=== PATIENT | female | born 1965 | race American Indian/Alaskan Native ===

== ENCOUNTER 2019-01-20 22:44 | Inpatient (IN) | payer OTHER ==
[2019-01-20] MEDS ORDERED: Lidocaine 2% MPF (5 ml) Inj ONE (23:05)
[2019-01-20] MEDS ORDERED: Midazolam 2 MG/2 ML VIAL ONE (23:06)
[2019-01-20] MEDS ORDERED: Labetalol 5mg/ml (4ml) ONE (23:31)
[2019-01-21 00:03] VITALS: BMI 26.3
[2019-01-21] MEDS ORDERED: Sodium Chloride 0.9% 1,000 ML IV SCH (00:45)
[2019-01-21 01:00] LABS: BASO % 0.3 % (0.0-2.0); EOS % 0.1 % (0.0-4.0); HEMOGLOBIN 14.5 g/dL (11.0-16.0); LYMPH # 0.7 K/uL (1.0-4.3); LYMPH % 5.9 % (20.0-40.0); MEAN CORPUSCULAR HEMOGLOBIN 28.4 pg (27.0-31.0); MEAN CORPUSCULAR HGB CONC 32.7 g/dL (33.0-37.0); MEAN PLATELET VOLUME 8.7 fL (7.2-11.7); MONO # 0.4 K/uL (0.0-0.8); MONO % 3.3 % (0.0-10.0); NEUT # 10.1 K/uL (1.8-7.0); NEUT % 90.4 % (50.0-75.0); NRBC % 0.1 % (0.0-2.0); RBC 5.12 Mil/uL (3.80-5.20); WHITE BLOOD COUNT 11.2 K/uL (4.8-10.8)
--- NOTE | 2019-01-21 01:07 | CP.PCM.CON ---
History of Present Illness - History of Present Illness History of Present Illness: 53 F with h/o htn, family h/o cad, presented to the [facility] ER with c/o chest pain, sob, numbness in the fingers, EKG showed inferior STEMI, patient transferred here as code heart, stented in RCA, currently pain free, vitals maintained. B mirela observed post cath. Had also about 60-70% LAD disease for possible staged treatment. PMH as above Allergies angioedema that she with swelling left side of the face while on lisinopril Family history father had CAD in mid 50's at age of 62 Social lives with family, denies smoking, alcohol, illicit drugs, currently retired. Meds reviewed. Review of Systems - Review of Systems All systems: reviewed and no additional remarkable complaints except (HPI) Past Patient History - Past Medical History & Family History Past Medical History?: Yes - Past Social History Smoking Status: Never Smoked Alcohol: None Drugs: Denies Home Situation {Lives}: With Family - CARDIAC Hx Cardiac Disorders: Yes Hx Hypertension: Yes - PULMONARY Hx Respiratory Disorders: No - NEUROLOGICAL Hx Neurological Disorder: No - HEENT Hx HEENT Problems: No - RENAL Hx Chronic Kidney Disease: No - ENDOCRINE/METABOLIC Hx Endocrine Disorders: No - HEMATOLOGICAL/ONCOLOGICAL Hx Blood Disorders: Yes - INTEGUMENTARY Hx Dermatological Problems: No - MUSCULOSKELETAL/RHEUMATOLOGICAL Hx Musculoskeletal Disorders: No - GASTROINTESTINAL Hx Gastrointestinal Disorders: No - GENITOURINARY/GYNECOLOGICAL Hx Genitourinary Disorders: No - PSYCHIATRIC Hx Psychophysiologic Disorder: No Hx Substance Use: No - SURGICAL HISTORY Hx Surgeries: Yes Hx Section: Yes Hx Tubal Ligation: Yes - ANESTHESIA Hx Anesthesia: No Hx Anesthesia Reactions: No Hx Malignant Hyperthermia: No Has any member of the family had a problem w/ anesthesia?: No Meds Allergies/Adverse Reactions: Allergies Allergy/AdvReac Type Severity Reaction Status Date / Time lisinopril Allergy ANGIOEDEMA Verified 01/20/19 22:10 - Medications Medications: Current Medications Aspirin (Ecotrin) 81 mg PO DAILY [place] Famotidine (Pepcid) 20 mg PO DAILY PRN PRN Reason: Heartburn Heparin Sodium (Porcine) (Heparin) 5,000 units SC Q12 [place] Sodium Chloride (Sodium Chloride 0.9%) 1,000 mls @ 70 mls/hr IV .[id number] [place] Metoprolol Tartrate (Lopressor) 25 mg PO Q12H [place] Rosuvastatin Calcium (Crestor) 20 mg PO HS [place] Ticagrelor (Brilinta) 90 mg PO BID [place] Physical Exam - Additional Findings Additional findings: * HEENT CARIDAD * Neck supple * Chest clear * CVS regular, no gallop or rub * PA soft,nt bs present, cath site no swelling or oozing noticed * Ext no edema b/l DP and PT pulses present * 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 Assessment & Plan - Assessment and Plan (Free Text) Assessment: * Inferior STEMI s/p pci, 60-70% LAD * H/o HTN * Family history of early CAD * Angioedema while on lisinopril Plan: * Monitor in ICU * Dual antipletelet agent * Betablocker * Echo * labs * ivf * gi/dvt prophylaixs * See orders for detail.
[2019-01-21 01:21] LABS: INR 1.2; PROTHROMBIN TIME 13.6 SECONDS (9.7-12.2)
--- NOTE | 2019-01-21 01:22 | CP.PCM.CON ---
History of Present Illness - History of Present Illness History of Present Illness: 53 F with h/o htn, family h/o cad, presented to the [facility] ER with c/o chest pain, sob, numbness in the fingers, EKG showed inferior STEMI, patient transferred here as code heart, stented in RCA, currently pain free, vitals maintained. B mirela observed post cath. Had also about 60-70% LAD disease for possible staged treatment. PMH as above Allergies angioedema that she with swelling left side of the face while on lisinopril Family history father had CAD in mid 50's at age of 62 Social lives with family, denies smoking, alcohol, illicit drugs, currently retired. Meds reviewed. Review of Systems - Review of Systems All systems: reviewed and no additional remarkable complaints except (HPI) Past Patient History - Past Medical History & Family History Past Medical History?: Yes - Past Social History Smoking Status: Never Smoked Alcohol: None Drugs: Denies Home Situation {Lives}: With Family - CARDIAC Hx Cardiac Disorders: Yes Hx Hypertension: Yes - PULMONARY Hx Respiratory Disorders: No - NEUROLOGICAL Hx Neurological Disorder: No - HEENT Hx HEENT Problems: No - RENAL Hx Chronic Kidney Disease: No - ENDOCRINE/METABOLIC Hx Endocrine Disorders: No - HEMATOLOGICAL/ONCOLOGICAL Hx Blood Disorders: Yes - INTEGUMENTARY Hx Dermatological Problems: No - MUSCULOSKELETAL/RHEUMATOLOGICAL Hx Musculoskeletal Disorders: No - GASTROINTESTINAL Hx Gastrointestinal Disorders: No - GENITOURINARY/GYNECOLOGICAL Hx Genitourinary Disorders: No - PSYCHIATRIC Hx Psychophysiologic Disorder: No Hx Substance Use: No - SURGICAL HISTORY Hx Surgeries: Yes Hx Section: Yes Hx Tubal Ligation: Yes - ANESTHESIA Hx Anesthesia: No Hx Anesthesia Reactions: No Hx Malignant Hyperthermia: No Has any member of the family had a problem w/ anesthesia?: No Meds Allergies/Adverse Reactions: Allergies Allergy/AdvReac Type Severity Reaction Status Date / Time lisinopril Allergy ANGIOEDEMA Verified 01/20/19 22:10 - Medications Medications: Current Medications Aspirin (Ecotrin) 81 mg PO DAILY [place] Famotidine (Pepcid) 20 mg PO DAILY PRN PRN Reason: Heartburn Heparin Sodium (Porcine) (Heparin) 5,000 units SC Q12 [place] Sodium Chloride (Sodium Chloride 0.9%) 1,000 mls @ 70 mls/hr IV .[id number] [place] Metoprolol Tartrate (Lopressor) 25 mg PO Q12H [place] Rosuvastatin Calcium (Crestor) 20 mg PO HS [place] Ticagrelor (Brilinta) 90 mg PO BID [place] Physical Exam - Additional Findings Additional findings: * HEENT CARIDAD * Neck supple * Chest clear * CVS regular, no gallop or rub * PA soft,nt bs present, cath site no swelling or oozing noticed * Ext no edema b/l DP and PT pulses present * 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 Assessment & Plan - Assessment and Plan (Free Text) Assessment: * Inferior STEMI s/p pci, 60-70% LAD * H/o HTN * Family history of early CAD * Angioedema while on lisinopril Plan: * Monitor in ICU * Dual antipletelet agent * Betablocker * Echo * labs * ivf * gi/dvt prophylaixs * See orders for detail. Past Patient History - Past Medical History & Family History Past Medical History?: Yes - Past Social History Smoking Status: Never Smoked Alcohol: None Drugs: Denies Home Situation {Lives}: With Family - CARDIAC Hx Cardiac Disorders: Yes Hx Hypertension: Yes - PULMONARY Hx Respiratory Disorders: No - NEUROLOGICAL Hx Neurological Disorder: No - HEENT Hx HEENT Problems: No - RENAL Hx Chronic Kidney Disease: No - ENDOCRINE/METABOLIC Hx Endocrine Disorders: No - HEMATOLOGICAL/ONCOLOGICAL Hx Blood Disorders: Yes - INTEGUMENTARY Hx Dermatological Problems: No - MUSCULOSKELETAL/RHEUMATOLOGICAL Hx Musculoskeletal Disorders: No - GASTROINTESTINAL Hx Gastrointestinal Disorders: No - GENITOURINARY/GYNECOLOGICAL Hx Genitourinary Disorders: No - PSYCHIATRIC Hx Psychophysiologic Disorder: No Hx Substance Use: No - SURGICAL HISTORY Hx Surgeries: Yes Hx Section: Yes Hx Tubal Ligation: Yes - ANESTHESIA Hx Anesthesia: No Hx Anesthesia Reactions: No Hx Malignant Hyperthermia: No Has any member of the family had a problem w/ anesthesia?: No Meds Allergies/Adverse Reactions: Allergies Allergy/AdvReac Type Severity Reaction Status Date / Time lisinopril Allergy ANGIOEDEMA Verified 01/20/19 22:10 - Medications Medications: Current Medications Aspirin (Ecotrin) 81 mg PO DAILY [place] Famotidine (Pepcid) 20 mg PO DAILY PRN PRN Reason: Heartburn Heparin Sodium (Porcine) (Heparin) 5,000 units SC Q12 [facility] Sodium Chloride (Sodium Chloride 0.9%) 1,000 mls @ 70 mls/hr IV .[id number] [facility] Influenza Virus Vaccine (Flucelvax Quad [id number] Syr) 60 mcg IM .ONCE ONE Stop: 01/23/19 10:01 Metoprolol Tartrate (Lopressor) 25 mg PO Q12H [facility] Rosuvastatin Calcium (Crestor) 20 mg PO HS [place] Ticagrelor (Brilinta) 90 mg PO BID [facility] Results - Vital Signs Recent Vital Signs: Last Vital Signs Temp Pulse 86 01/21/19 00:06 Resp 16 01/21/19 00:06 BP Pulse Ox 97 01/21/19 00:06 - Labs Result Diagrams: 01/21/19 00:57 Labs: Laboratory Results - last 24 hr 01/21/19 00:57 WBC 11.2 H RBC 5.12 Hgb 14.5 Hct 44.5 MCV 87.0 MCH 28.4 MCHC 32.7 L RDW 15.0 H Plt Count 258 MPV 8.7 Neut % (Auto) 90.4 H Lymph % (Auto) 5.9 L [place] % (Auto) 3.3 Eos % (Auto) 0.1 Baso % (Auto) 0.3 Neut # (Auto) 10.1 H Lymph # (Auto) 0.7 L [place] # (Auto) 0.4 Eos # (Auto) 0.0 Baso # (Auto) 0.0
[2019-01-21 01:27] LABS: PARTIAL THROMBOPLASTIN TIME > 400 SECONDS (21-34)
[2019-01-21 01:38] LABS: ALBUMIN 5.4 g/dL (3.5-5.0); CALCIUM 10.1 mg/dl (8.6-10.4)
[2019-01-21 01:49] LABS: CK-MB 6.42 ng/mL (0.0-3.38); TROPONIN I 0.105 ng/mL (0.00-0.120)
--- NOTE | 2019-01-21 02:20 | CP.PCM.HP ---
History of Present Illness - History of Present Illness History of Present Illness: H&P Dr. Merino 54 F w/ PMhx of HTN presents to hospital as code heart transfer from [facility]. Patient states she was playing bingo when she started having this sudden pressure like, 10/10 chest pain with pain radiating to left arm. Patient had associated SOB and 2 episodes of vomiting. Patient was rushed to ED where they found ST elevates in inferior leads II, III, AVF. Code heart was called and patient was transferred to [facility] Cardiac cath revealed 100 % stenosis in mid to proximal RCA requiring 1 stent. LAD had 60-70% occlusion. Post cath patient feels much better. Patient denies headaches, vision changes, chest pain, SOB, cough, abdominal pain, diarrhea, constipation. PMHD: Dr. Gold PMHx: HTN, sickle cell traite Meds: Unsure Allergies: Lisinopril (angioedema) FHx father had CAD in mid 50's at age of 62 PSHx: ovarian tubal ligation SHx: Denies tobacco use, drinks socially, denies illicit drug use Present on Admission - Present on Admission Any Indicators Present on Admission: No History of DVT/PE: No History of Uncontrolled Diabetes: No Urinary Catheter: No Decubitus Ulcer Present: No Review of Systems - Constitutional Constitutional: absent: Chills, Frequent Falls - EENT Eyes: absent: Blurred Vision, Change in Vision Ears: absent: Ear Discharge - Cardiovascular Cardiovascular: absent: Chest Pain, Chest Pain at Rest, Dyspnea - Respiratory Respiratory: absent: Dyspnea, Dyspnea on Exertion, Chest Congestion - Gastrointestinal Gastrointestinal: absent: Abdominal Pain, Diarrhea - Genitourinary Genitourinary: absent: Change in Urinary Stream - Musculoskeletal Musculoskeletal: absent: Abnormal Gait, Arthralgias - Neurological Neurological: absent: Abnormal Gait, Abnormal Hearing, Numbness - Psychiatric Psychiatric: absent: Depression - Hematologic/Lymphatic Hematologic: absent: Easy Bleeding Past Patient History - Past Medical History & Family History Past Medical History?: Yes - Past Social History Smoking Status: Never Smoked Alcohol: None Drugs: Denies Home Situation {Lives}: With Family - CARDIAC Hx Cardiac Disorders: Yes Hx Hypertension: Yes - PULMONARY Hx Respiratory Disorders: No - NEUROLOGICAL Hx Neurological Disorder: No - HEENT Hx HEENT Problems: No - RENAL Hx Chronic Kidney Disease: No - ENDOCRINE/METABOLIC Hx Endocrine Disorders: No - HEMATOLOGICAL/ONCOLOGICAL Hx Blood Disorders: Yes - INTEGUMENTARY Hx Dermatological Problems: No - MUSCULOSKELETAL/RHEUMATOLOGICAL Hx Musculoskeletal Disorders: No - GASTROINTESTINAL Hx Gastrointestinal Disorders: No - GENITOURINARY/GYNECOLOGICAL Hx Genitourinary Disorders: No - PSYCHIATRIC Hx Psychophysiologic Disorder: No Hx Substance Use: No - SURGICAL HISTORY Hx Surgeries: Yes Hx Section: Yes Hx Tubal Ligation: Yes - ANESTHESIA Hx Anesthesia: No Hx Anesthesia Reactions: No Hx Malignant Hyperthermia: No Has any member of the family had a problem w/ anesthesia?: No Meds Allergies/Adverse Reactions: Allergies Allergy/AdvReac Type Severity Reaction Status Date / Time lisinopril Allergy ANGIOEDEMA Verified 01/20/19 22:10 Physical Exam - Constitutional Appears: Non-toxic, No Acute Distress - Head Exam Head Exam: NORMAL INSPECTION - Eye Exam Eye Exam: EOMI, Normal appearance - ENT Exam ENT Exam: Mucous Membranes Moist - Respiratory Exam Respiratory Exam: Clear to Auscultation Bilateral, NORMAL BREATHING PATTERN - Cardiovascular Exam Cardiovascular Exam: +S1, +S2. absent: Systolic Murmur - GI/Abdominal Exam GI & Abdominal Exam: Normal Bowel Sounds, Soft - Extremities Exam Extremities exam: Negative for: calf tenderness, pedal edema Additional comments: site of catheter insertion R groin, dressing, clean, dry, intact. - Back Exam Back exam: absent: CVA tenderness (L), CVA tenderness (R) - Neurological Exam Neurological exam: Alert, Oriented x3 - Psychiatric Exam Psychiatric exam: Normal Affect, Normal Mood - Skin Skin Exam: Dry, Intact, Normal Color, Warm Results - Vital Signs Recent Vital Signs: Last Vital Signs Temp 97 F L 01/21/19 00:00 Pulse 75 01/21/19 02:00 Resp 14 01/21/19 02:00 BP 156/88 H 01/21/19 02:00 Pulse Ox 99 01/21/19 02:00 - Labs Result Diagrams: 01/21/19 00:57 01/21/19 00:57 Labs: Laboratory Results - last 24 hr 01/21/19 01/21/19 01/21/19 00:57 00:57 00:57 WBC 11.2 H RBC 5.12 Hgb 14.5 Hct 44.5 MCV 87.0 MCH 28.4 MCHC 32.7 L RDW 15.0 H Plt Count 258 MPV 8.7 Neut % (Auto) 90.4 H Lymph % (Auto) 5.9 L [place] % (Auto) 3.3 Eos % (Auto) 0.1 Baso % (Auto) 0.3 Neut # (Auto) 10.1 H Lymph # (Auto) 0.7 L [place] # (Auto) 0.4 Eos # (Auto) 0.0 Baso # (Auto) 0.0 PT 13.6 H INR 1.2 APTT > 400 H* Sodium 139 Potassium 4.5 Chloride 100 Carbon Dioxide 28 Anion Gap 15 BUN 16 Creatinine 1.2 Est GFR ( Amer) 57 Est GFR (Non-Af Amer) 47 Random Glucose 120 H Calcium 10.1 Phosphorus 3.5 Magnesium 2.0 Total Bilirubin 1.2 AST 45 H D ALT 9 Alkaline Phosphatase 96 Total Creatine Kinase 181 H CK-MB (Mass) 6.42 H Troponin I 0.1050 Total Protein 10.5 H Albumin 5.4 H Globulin 5.1 H Albumin/Globulin Ratio 1.0 Assessment & Plan - Assessment and Plan (Free Text) Assessment: 53 F w/ PMhx of HTN presents to hospital as code heart, with ST elevations in inferior leads, 100% stenosis of RCA, 60-70% of LAD, requiring 1 stent in RCA, currently in ICU for further monitoring. Plan: STEMI - chest pain, with EKG revealing ST elevations in II, III, AVF - s/p cardiac cath revealing 100 stenosis of RCA requiring 1 stent & 60-70 % of LAD - F/u ECHO, LIPID panel, TSH - Aspirin 81 mg daily, brilinta 90 mg BID, rosuvastatin 20 mg daily, metopolol tartrate 25 mg PO BID, NS @ 70mls/hr - F/u cardio recs PPx - DVT: heparin 5000 SC daily, SCDs - GI: pepcid 20 mg daily PRN
[2019-01-21 06:20] LABS: BASO # 0.1 K/uL (0.0-0.2); BASO % 0.9 % (0.0-2.0); EOS % 0.1 % (0.0-4.0); HEMOGLOBIN 13.1 g/dL (11.0-16.0); LYMPH # 1.1 K/uL (1.0-4.3); LYMPH % 12.9 % (20.0-40.0); MEAN CELL VOLUME 85.8 fL (81.0-99.0); MEAN CORPUSCULAR HEMOGLOBIN 28.2 pg (27.0-31.0); MEAN CORPUSCULAR HGB CONC 32.8 g/dL (33.0-37.0); MEAN PLATELET VOLUME 8.3 fL (7.2-11.7); MONO # 0.4 K/uL (0.0-0.8); MONO % 4.8 % (0.0-10.0); NEUT # 6.8 K/uL (1.8-7.0); NEUT % 81.3 % (50.0-75.0); NRBC % 0.1 % (0.0-2.0); RBC 4.65 Mil/uL (3.80-5.20); RED CELL DISTRIBUTION WIDTH 15.2 % (11.5-14.5); WHITE BLOOD COUNT 8.3 K/uL (4.8-10.8)
[2019-01-21 06:32] LABS: INR 1.2; PROTHROMBIN TIME 12.9 SECONDS (9.7-12.2)
[2019-01-21 06:48] LABS: LDL CHOLESTEROL 113 mg/dL (0-129)
[2019-01-21 06:54] LABS: ALB/GLOB RATIO 1.2 (1.0-2.1); ALBUMIN 4.9 g/dL (3.5-5.0); ALT/SGPT 24 U/L (9-52); AST/SGOT 59 U/L (14-36); BLOOD UREA NITROGEN 14 mg/dL (7-17); CALCIUM 9.9 mg/dl (8.6-10.4); CK-MB 25.2 ng/mL (0.0-3.38); GFR NON-AFRICAN AMERICAN 58; HDL CHOLESTEROL 43 mg/dL (30-70)
--- NOTE | 2019-01-21 09:51 | CP.PCM.PN ---
Subjective - Date & Time of Evaluation Date of Evaluation: 01/21/19 Time of Evaluation: 15:32 - Subjective Subjective: Medicine Note for Dr. Merino Patient was seen and examined at bedside. Patient denied any chest pain, shortness of breath, or bleeding from the cath site. Objective - Vital Signs/Intake and Output Vital Signs (last 24 hours): Temp Pulse Resp BP Pulse Ox 98.1 F 67 13 148/85 98 01/21/19 04:00 01/21/19 07:00 01/21/19 07:00 01/21/19 07:00 01/21/19 07:00 Intake and Output: 01/21/19 01/21/19 06:59 18:59 Intake Total 520 70 Output Total 1900 Balance -1380 70 - Medications Medications: Current Medications Aspirin (Ecotrin) 81 mg PO DAILY [facility] Last Admin: 01/21/19 09:08 Dose: 81 mg Famotidine (Pepcid) 20 mg PO DAILY PRN PRN Reason: Heartburn Heparin Sodium (Porcine) (Heparin) 5,000 units SC Q12 [facility] Last Admin: 01/21/19 09:08 Dose: 5,000 units Influenza Virus Vaccine (Flucelvax Quad [id number] Syr) 60 mcg IM .ONCE ONE Stop: 01/23/19 10:01 Metoprolol Tartrate (Lopressor) 25 mg PO Q12H [facility] Last Admin: 01/21/19 01:35 Dose: 25 mg Rosuvastatin Calcium (Crestor) 20 mg PO HS [place] Ticagrelor (Brilinta) 90 mg PO BID [facility] Last Admin: 01/21/19 09:07 Dose: 90 mg - Labs Labs: 01/21/19 06:10 01/21/19 06:10 PT 12.9 SECONDS (9.7-12.2) H 01/21/19 06:10 INR 1.2 01/21/19 06:10 APTT 29 SECONDS (21-34) D 01/21/19 06:10 - Constitutional Appears: No Acute Distress - Head Exam Head Exam: NORMAL INSPECTION, NORMOCEPHALIC - Eye Exam Eye Exam: EOMI, Normal appearance, PERRL Pupil Exam: NORMAL ACCOMODATION - ENT Exam ENT Exam: Mucous Membranes Moist, Normal Exam - Respiratory Exam Respiratory Exam: Clear to Ausculation Bilateral, NORMAL BREATHING PATTERN. absent: Decreased Breath Sounds, Rhonchi, Wheezes - Cardiovascular Exam Cardiovascular Exam: REGULAR RHYTHM, +S1, +S2 - GI/Abdominal Exam GI & Abdominal Exam: Soft, Normal Bowel Sounds. absent: Distended, Tenderness - Extremities Exam Extremities Exam: Normal Inspection. absent: Pedal Edema, Tenderness - Neurological Exam Neurological Exam: Alert, Awake, Oriented x3 - Psychiatric Exam Psychiatric exam: Normal Affect, Normal Mood - Skin Skin Exam: Dry, Intact, Normal Color, Warm - Additional Findings Additional findings: Catherization site - clean/ dry / intact Assessment and Plan - Assessment and Plan (Free Text) Plan: STEMI - Inferior [place] s/p cardiac cath with RCA PCI placement - 60-70 % of LAD, which will require outpatient PCI placement - ECHO, pending Management: - Aspirin 81 mg daily, Brilinta 90 mg BID, Metopolol tartrate 25 mg PO BID, Rosuvastatin 20 mg daily Hypertension - Patient was started on HCTZ 12.5mg PO daily by her PMD - She has been normotensive s/p cath - Will continue to monitor Prophylactic Measures - GI PPX: Pepcid PO daily - DVT PPX: Hep SC Q12, SCDs DW Dr. Merino, Miladis Soares DO, PGY2
--- NOTE | 2019-01-21 11:32 | CP.CCUPN ---
<Faustino Nichole - Last Filed: 01/21/19 16:59> CCU Subjective - Physician Review Subjective (Free Text): ICU Progress Note for Dr. Roseline Guardado Pt seen and examined at bedside this am. S/p Code Heart, EKG demonstrated ST elevations in inferior leads. Cardiac cath performed by Dr. Guy demonstrated 100% stenosis of RCA, 60-70% of LAD, requiring 1 stent in RCA. Pt states she feels tired this am, but denies having chest pain currently. Denies sob, n/v/d/c, abd pain, urinary complaints, numbness/tingling of exts, fever, chills, or other symptoms. CCU Objective - Vital Signs / Intake & Output Vital Signs (Last 4 hours): Vital Signs Temp Pulse Resp BP Pulse Ox 01/21/19 10:00 75 13 145/85 98 01/21/19 09:00 75 15 144/94 H 98 01/21/19 08:00 97.8 F 81 10 L 159/104 H 98 Intake and Output (Last 8hrs): Intake & Output 01/20/19 01/21/19 01/21/19 22:59 06:59 14:59 Intake Total 520 910 Output Total 1900 600 Balance -1380 310 Weight 158 lb 4.67 oz Intake: Intake, IV Amount 420 210 Left Antecubital 420 210 Oral 100 700 Output: Urine 1900 600 Urine, Voided 1900 600 Other: Voiding Method Bedpan # Voids Urine, Voided 1 - Physical Exam Head: Positive for: Atraumatic, Normocephalic Pupils: Positive for: PERRL Extroacular Muscles: Positive for: EOMI Conjunctiva: Positive for: Normal Mouth: Positive for: Moist Mucous Membranes Neck: Positive for: Normal Range of Motion. Negative for: JVD, Lymphadenopathy Respiratory/Chest: Positive for: Clear to Auscultation, Good Air Exchange. Negative for: Respiratory Distress, Accessory Muscle Use, Wheezes, Rales, Rhonchi Cardiovascular: Positive for: Regular Rate and Rhythm, Normal S1, S2. Negative for: Murmurs, Rub, Gallop Abdomen: Positive for: Normal Bowel Sounds. Negative for: Tenderness, Distention, Mass/Organomegaly Upper Extremity: Positive for: Normal Inspection, Normal ROM, NORMAL PULSES, Neurovascularly Intact, Capillary Refill < 2s. Negative for: Cyanosis, Edema Lower Extremity: Positive for: Normal Inspection, NORMAL PULSES, Normal ROM, Neurovascularly Intact, Capillary Refill < 2 s. Negative for: Edema Neurological: Positive for: GCS=15, CN II-XII Intact, Speech Normal Skin: Positive for: Warm, Dry, Normal Color, Other (Catheter insertion site c/d/i on R groin) Psychiatric: Positive for: Alert, Oriented x 3 - Medications Active Medications: Active Medications Generic Name Dose Route Start Last Admin Trade Name Freq PRN Reason Stop Dose Admin Aspirin 81 mg 01/21/19 10:00 01/21/19 09:08 Ecotrin PO 81 mg DAILY [place] Administration Famotidine 20 mg 01/21/19 00:37 Pepcid PO DAILY PRN Heartburn Heparin Sodium (Porcine) 5,000 units 01/21/19 10:00 01/21/19 09:08 Heparin SC 5,000 units Q12 [place] Administration Influenza Virus Vaccine 60 mcg 01/23/19 10:00 Flucelvax Quad [id number] Syr IM 01/23/19 10:01 .ONCE ONE Metoprolol Tartrate 25 mg 01/21/19 00:45 01/21/19 01:35 Lopressor PO 25 mg Q12H [place] Administration Rosuvastatin Calcium 20 mg 01/21/19 22:00 Crestor PO HS [place] Ticagrelor 90 mg 01/21/19 10:00 01/21/19 09:07 Brilinta PO 90 mg BID [place] Administration - Patient Studies Lab Studies: Lab Studies 01/21/19 01/21/19 01/21/19 Range/Units 06:10 06:10 06:10 WBC 8.3 (4.8-10.8) K/uL RBC 4.65 (3.80-5.20) Mil/uL Hgb 13.1 (11.0-16.0) g/dL Hct 39.9 (34.0-47.0) % MCV 85.8 (81.0-99.0) fL MCH 28.2 (27.0-31.0) pg MCHC 32.8 L (33.0-37.0) g/dL RDW 15.2 H (11.5-14.5) % Plt Count 237 (130-400) K/uL MPV 8.3 (7.2-11.7) fL Neut % (Auto) 81.3 H (50.0-75.0) % Lymph % (Auto) 12.9 L (20.0-40.0) % [place] % (Auto) 4.8 (0.0-10.0) % Eos % (Auto) 0.1 (0.0-4.0) % Baso % (Auto) 0.9 (0.0-2.0) % Neut # (Auto) 6.8 (1.8-7.0) K/uL Lymph # (Auto) 1.1 (1.0-4.3) K/uL [place] # (Auto) 0.4 (0.0-0.8) K/uL Eos # (Auto) 0.0 (0.0-0.7) K/uL Baso # (Auto) 0.1 (0.0-0.2) K/uL PT 12.9 H (9.7-12.2) SECONDS INR 1.2 APTT 29 D (21-34) SECONDS Sodium 137 (132-148) mmol/L Potassium 4.0 (3.6-5.2) mmol/L Chloride 102 (98-107) mmol/L Carbon Dioxide 26 (22-30) mmol/L Anion Gap 13 (10-20) BUN 14 (7-17) mg/dL Creatinine 1.0 (0.7-1.2) mg/dL Est GFR ( Amer) > 60 Est GFR (Non-Af Amer) 58 Random Glucose 107 H (65-105) mg/dL Calcium 9.9 (8.6-10.4) mg/dl Phosphorus 4.4 (2.5-4.5) mg/dL Magnesium 2.0 (1.6-2.3) mg/dL Total Bilirubin 0.8 (0.2-1.3) mg/dL AST 59 H D (14-36) U/L ALT 24 (9-52) U/L Alkaline Phosphatase 75 (38-126) U/L Total Creatine Kinase 352 H (30-135) U/L CK-MB (Mass) 25.2 H (0.0-3.38) ng/mL Troponin I 2.7400 H* (0.00-0.120) ng/mL Total Protein 9.0 H (6.3-8.3) g/dL Albumin 4.9 (3.5-5.0) g/dL Globulin 4.1 H (2.2-3.9) gm/dL Albumin/Globulin Ratio 1.2 (1.0-2.1) Triglycerides 124 (0-149) mg/dL Cholesterol 170 (0-199) mg/dL LDL Cholesterol Direct 113 (0-129) mg/dL HDL Cholesterol 43 (30-70) mg/dL TSH 3rd Generation 0.60 (0.46-4.68) mIU/L 01/21/19 01/21/19 01/21/19 Range/Units 00:57 00:57 00:57 WBC 11.2 H (4.8-10.8) K/uL RBC 5.12 (3.80-5.20) Mil/uL Hgb 14.5 (11.0-16.0) g/dL Hct 44.5 (34.0-47.0) % MCV 87.0 (81.0-99.0) fL MCH 28.4 (27.0-31.0) pg MCHC 32.7 L (33.0-37.0) g/dL RDW 15.0 H (11.5-14.5) % Plt Count 258 (130-400) K/uL MPV 8.7 (7.2-11.7) fL Neut % (Auto) 90.4 H (50.0-75.0) % Lymph % (Auto) 5.9 L (20.0-40.0) % [place] % (Auto) 3.3 (0.0-10.0) % Eos % (Auto) 0.1 (0.0-4.0) % Baso % (Auto) 0.3 (0.0-2.0) % Neut # (Auto) 10.1 H (1.8-7.0) K/uL Lymph # (Auto) 0.7 L (1.0-4.3) K/uL [place] # (Auto) 0.4 (0.0-0.8) K/uL Eos # (Auto) 0.0 (0.0-0.7) K/uL Baso # (Auto) 0.0 (0.0-0.2) K/uL PT 13.6 H (9.7-12.2) SECONDS INR 1.2 APTT > 400 H* (21-34) SECONDS Sodium 139 (132-148) mmol/L Potassium 4.5 (3.6-5.2) mmol/L Chloride 100 (98-107) mmol/L Carbon Dioxide 28 (22-30) mmol/L Anion Gap 15 (10-20) BUN 16 (7-17) mg/dL Creatinine 1.2 (0.7-1.2) mg/dL Est GFR ( Amer) 57 Est GFR (Non-Af Amer) 47 Random Glucose 120 H (65-105) mg/dL Calcium 10.1 (8.6-10.4) mg/dl Phosphorus 3.5 (2.5-4.5) mg/dL Magnesium 2.0 (1.6-2.3) mg/dL Total Bilirubin 1.2 (0.2-1.3) mg/dL AST 45 H D (14-36) U/L ALT 9 (9-52) U/L Alkaline Phosphatase 96 (38-126) U/L Total Creatine Kinase 181 H (30-135) U/L CK-MB (Mass) 6.42 H (0.0-3.38) ng/mL Troponin I 0.1050 (0.00-0.120) ng/mL Total Protein 10.5 H (6.3-8.3) g/dL Albumin 5.4 H (3.5-5.0) g/dL Globulin 5.1 H (2.2-3.9) gm/dL Albumin/Globulin Ratio 1.0 (1.0-2.1) Triglycerides (0-149) mg/dL Cholesterol (0-199) mg/dL LDL Cholesterol Direct (0-129) mg/dL HDL Cholesterol (30-70) mg/dL TSH 3rd Generation (0.46-4.68) mIU/L Laboratory Results - last 24 hr 01/21/19 01/21/19 01/21/19 00:57 00:57 00:57 WBC 11.2 H RBC 5.12 Hgb 14.5 Hct 44.5 MCV 87.0 MCH 28.4 MCHC 32.7 L RDW 15.0 H Plt Count 258 MPV 8.7 Neut % (Auto) 90.4 H Lymph % (Auto) 5.9 L [place] % (Auto) 3.3 Eos % (Auto) 0.1 Baso % (Auto) 0.3 Neut # (Auto) 10.1 H Lymph # (Auto) 0.7 L [place] # (Auto) 0.4 Eos # (Auto) 0.0 Baso # (Auto) 0.0 PT 13.6 H INR 1.2 APTT > 400 H* Sodium 139 Potassium 4.5 Chloride 100 Carbon Dioxide 28 Anion Gap 15 BUN 16 Creatinine 1.2 Est GFR ( Amer) 57 Est GFR (Non-Af Amer) 47 Random Glucose 120 H Calcium 10.1 Phosphorus 3.5 Magnesium 2.0 Total Bilirubin 1.2 AST 45 H D ALT 9 Alkaline Phosphatase 96 Total Creatine Kinase 181 H CK-MB (Mass) 6.42 H Troponin I 0.1050 Total Protein 10.5 H Albumin 5.4 H Globulin 5.1 H Albumin/Globulin Ratio 1.0 Triglycerides Cholesterol LDL Cholesterol Direct HDL Cholesterol TSH 3rd Generation 01/21/19 01/21/19 01/21/19 06:10 06:10 06:10 WBC 8.3 RBC 4.65 Hgb 13.1 Hct 39.9 MCV 85.8 MCH 28.2 MCHC 32.8 L RDW 15.2 H Plt Count 237 MPV 8.3 Neut % (Auto) 81.3 H Lymph % (Auto) 12.9 L [place] % (Auto) 4.8 Eos % (Auto) 0.1 Baso % (Auto) 0.9 Neut # (Auto) 6.8 Lymph # (Auto) 1.1 [place] # (Auto) 0.4 Eos # (Auto) 0.0 Baso # (Auto) 0.1 PT 12.9 H INR 1.2 APTT 29 D Sodium 137 Potassium 4.0 Chloride 102 Carbon Dioxide 26 Anion Gap 13 BUN 14 Creatinine 1.0 Est GFR ( Amer) > 60 Est GFR (Non-Af Amer) 58 Random Glucose 107 H Calcium 9.9 Phosphorus 4.4 Magnesium 2.0 Total Bilirubin 0.8 AST 59 H D ALT 24 Alkaline Phosphatase 75 Total Creatine Kinase 352 H CK-MB (Mass) 25.2 H Troponin I 2.7400 H* Total Protein 9.0 H Albumin 4.9 Globulin 4.1 H Albumin/Globulin Ratio 1.2 Triglycerides 124 Cholesterol 170 LDL Cholesterol Direct 113 HDL Cholesterol 43 TSH 3rd Generation 0.60 EKG/Cardiology Studies: Cardiology / EKG Studies 01/21/19 00:03 EKG [ELECTROCARDIOGRAM] Stat Comment: Mode Of Transportation: PORTABLE Reason For Exam: s/p code heart Review of Systems - Constitutional Constitutional: absent: Fever, Chills, Sweats - EENT Eyes: absent: Change in Vision - Cardiovascular Cardiovascular: absent: Chest Pain, Diaphoresis, Dyspnea on Exertion, Pain Radiating to Arm/Neck/Jaw, Leg Edema, Palpitations, Syncope - Gastrointestinal Gastrointestinal: absent: Abdominal Pain, Constipation, Diarrhea, Nausea, Vomiting Critical Care Progress Note - Nutrition Nutrition: Nutrition Category Date Time Status Heart Healthy Diet [DIET] Diets 01/21/19 Breakfast Active Assessment/Plan - Assessment and Plan (Free Text) Assessment: 53 y o female with PMhx HTN, TIA x2, sickle cell trait, who presented with c/o chest pain. Code Heart was called. EKG demonstrated ST elevations in inferior leads. Cardiac cath performed by Dr. Guy demonstrated 100% stenosis of RCA, 60- 70% of LAD, requiring 1 stent in RCA. Admitted to ICU for monitoring post- procedure. Pt stable for downgrade from ICU to telemetry. Plan: Neuro: -AAOx3, no gross deficits on exam. -Hx TIA x2 in past -Cont to monitor Cardio: -S/p cardiac cath with Dr. Guy demonstrated 100% stenosis of RCA, 60-70% of LAD, requiring 1 PAYAL in RCA -EKG on admission demonstrated ST elevations in inferior leads -Echo 01/21: Mild concentric LVH, LV systolic fx wnl, EF 65-70%, Transmitral Doppler flow pattern Grade I-abnormal relaxation pattern. Mitral regurgitation trace. -Troponin trend: 0.105 => 2.74 -C/w ASA, Briilinta -C/w beta-lisa therapy bid -C/w statin therapy -IVF d/c'd -Vitals stable -Hx angioedema with lisinopril therapy GI: -HHD -Pepcid -No acute issues at this time -Will cont to monitor Pulm: -Saturating well on room air -Cont to monitor Heme: -H/H stable -Leukocytosis resolved from admission -Hx sickle cell trait -Cont to trend Renal: -BUN/Cr 14/1.0, cont to trend -Voiding well, no acute issues at this time PPX: -Pepcid, Heparin Pt seen, examined with, and plan discussed with Dr. Roseline Guardado, attending physician. Faustino Nichole DO PGY-1, High Speed Printer Operator Pager #[phone] <Chelle Guardado - Last Filed: 01/23/19 15:51> CCU Objective - Patient Studies Lab Studies: Microbiology Studies 01/21/19 17:05 MRSA Culture - Final Naris MRSA NOT DETECTED Critical Care Progress Note - Nutrition Nutrition: Nutrition Category Date Time Status Heart Healthy Diet [DIET] Diets 01/21/19 Breakfast Active Assessment/Plan - Assessment and Plan (Free Text) Plan: Above resident note reviewed and verified. Patient tolerated PCI -continue all other medical treatment as per primary team - Date & Time Date: 01/21/19 Time: 19:00
--- NOTE | 2019-01-21 13:26 | CARD ---
APPROVED REPORT Date of service: 01/21/2019 EKG Measurement Heart [id number] <Conclusion> Normal sinus rhythm Left ventricular hypertrophy with repolarization abnormality Nonspecific ST abnormality Abnormal ECG
--- NOTE | 2019-01-21 17:02 | CARD ---
APPROVED REPORT Date of service: 01/21/2019 EXAM: Two-dimensional and M-mode echocardiogram with Doppler and color Doppler. Other Information Quality : GoodRhythm : INDICATION Dyspnea Chest Pain Status/Post AL RISK FACTORS Hypertension 2D DIMENSIONS IVSd1.9 (0.7-1.1cm)LVDd4.2 (3.9-5.9cm) PWd1.4 (0.7-1.1cm)LA Lhruuv69 (18-58mL) LVDs3.3 (2.5-4.0cm)FS (%) 22.6 % LVEF (%)70.0 (>50%)LVEF (Garcia's)77.16 % IVC0.00 cm M-Mode DIMENSIONS RVDd2.73 (2.1-3.2cm)Left Atrium (MM)3.39 (2.5-4.0cm) IVSd1.40 (0.7-1.1cm)Aortic Root2.69 (2.2-3.7cm) LVDd4.22 (4.0-5.6cm)Aortic Cusp Exc.1.89 (1.5-2.0cm) PWd1.40 (0.7-1.1cm)FS (%) 43 % LVDs2.40 (2.0-3.8cm)LVEF (%)75 (>50%) Mitral Valve MV E Zfcopblw76.2cm/sMV A Zpuiehao93.0cm/sE/A ratio0.9 TDI Lateral E' Peak V8.87cm/sMedial E' Peak V5.96cm/sE/Lateral E'9.0 E/Medial E'13.5 Tricuspid Valve TR Peak Ytzkolui034yl/sTR Peak Gr.[id number] LEFT VENTRICLE The left ventricle is normal size. There is mild concentric left ventricular hypertrophy. Left ventricle systolic function is normal. The Ejection Fraction is 65-70%. There is normal LV segmental wall motion. Transmitral Doppler flow pattern is Grade I-abnormal relaxation pattern. There is no ventricular septal defect visualized. RIGHT VENTRICLE The right ventricle is normal size. The right ventricular systolic function is normal. ATRIA The left atrium size is normal. The right atrium size is normal. AORTIC VALVE The aortic valve is tri-cuspid. The aortic valve is normal in structure. No aortic regurgitation is present. There is no aortic valvular stenosis. MITRAL VALVE The mitral valve is normal in structure. There is no evidence of mitral valve prolapse. Mitral regurgitation is trace. TRICUSPID VALVE The tricuspid valve is normal in structure. There is trace tricuspid regurgitation. Right ventricular systolic pressure is estimated at less than 30 mmHg. There is no pulmonary hypertension. PULMONIC VALVE The pulmonary valve is normal in structure. There is trace pulmonic valvular regurgitation. GREAT VESSELS The aortic root is normal in size. The ascending aorta is normal in size. The IVC is normal in size and collapses >50% with inspiration. PERICARDIAL EFFUSION There is no pericardial effusion. <Conclusion> There is mild concentric left ventricular hypertrophy. Left ventricle systolic function is normal. The Ejection Fraction is 65-70%. Transmitral Doppler flow pattern is Grade I-abnormal relaxation pattern. Mitral regurgitation is trace.
[2019-01-21 17:21] LABS: SQUAMOUS EPITHIAL 4 /hpf (0-5); URINE BACTERIA RARE (<OCC); URINE BILIRUBIN NEGATIVE (NEGATIVE); URINE BLOOD NEGATIVE (NEGATIVE); URINE CLARITY Clear (Clear); URINE COLOR Yellow (YELLOW); URINE GLUCOSE (UA) NORMAL (Normal); URINE LEUKOCYTE ESTERASE NEG Leu/uL (Negative); URINE PROTEIN NEGATIVE (NEGATIVE); URINE UROBILINOGEN NORMAL mg/dL (0.2-1.0)
[2019-01-21 17:25] VITALS: RESP 20
[2019-01-21 17:32] LABS: BARBITURATES, UR NEGATIVE (NEGATIVE); BENZODIAZEPINES, UR POSITIVE (NEGATIVE); OPIATES, UR NEGATIVE (NEGATIVE); PHENCYCLIDINE, UR NEGATIVE (NEGATIVE)
[2019-01-22 00:45] VITALS: TEMP 97.9
--- NOTE | 2019-01-22 06:47 | CP.PCM.DIS ---
Provider - Provider Date of Admission: 01/20/19 23:29 Attending physician: Hunter Merino Jr, MD Consults: 01/21/19 08:00 Inpatient PASTRY SOUS CHEF Core Measures Referral Routine Comment: Physician Instructions: Reason For Exam: Code Heart Time Spent in preparation of Discharge (in minutes): 55 Hospital Course - Lab Results Lab Results: Most Recent Lab Values WBC 8.3 K/uL (4.8-10.8) 01/21/19 06:10 RBC 4.65 Mil/uL (3.80-5.20) 01/21/19 06:10 Hgb 13.1 g/dL (11.0-16.0) 01/21/19 06:10 Hct 39.9 % (34.0-47.0) 01/21/19 06:10 MCV 85.8 fL (81.0-99.0) 01/21/19 06:10 MCH 28.2 pg (27.0-31.0) 01/21/19 06:10 MCHC 32.8 g/dL (33.0-37.0) L 01/21/19 06:10 RDW 15.2 % (11.5-14.5) H 01/21/19 06:10 Plt Count 237 K/uL (130-400) 01/21/19 06:10 MPV 8.3 fL (7.2-11.7) 01/21/19 06:10 Neut % (Auto) 81.3 % (50.0-75.0) H 01/21/19 06:10 Lymph % (Auto) 12.9 % (20.0-40.0) L 01/21/19 06:10 [place] % (Auto) 4.8 % (0.0-10.0) 01/21/19 06:10 Eos % (Auto) 0.1 % (0.0-4.0) 01/21/19 06:10 Baso % (Auto) 0.9 % (0.0-2.0) 01/21/19 06:10 Neut # (Auto) 6.8 K/uL (1.8-7.0) 01/21/19 06:10 Lymph # (Auto) 1.1 K/uL (1.0-4.3) 01/21/19 06:10 [place] # (Auto) 0.4 K/uL (0.0-0.8) 01/21/19 06:10 Eos # (Auto) 0.0 K/uL (0.0-0.7) 01/21/19 06:10 Baso # (Auto) 0.1 K/uL (0.0-0.2) 01/21/19 06:10 PT 12.9 SECONDS (9.7-12.2) H 01/21/19 06:10 INR 1.2 01/21/19 06:10 APTT 29 SECONDS (21-34) D 01/21/19 06:10 Sodium 137 mmol/L (132-148) 01/21/19 06:10 Potassium 4.0 mmol/L (3.6-5.2) 01/21/19 06:10 Chloride 102 mmol/L (98-107) 01/21/19 06:10 Carbon Dioxide 26 mmol/L (22-30) 01/21/19 06:10 Anion Gap 13 (10-20) 01/21/19 06:10 BUN 14 mg/dL (7-17) 01/21/19 06:10 Creatinine 1.0 mg/dL (0.7-1.2) 01/21/19 06:10 Est GFR ( Amer) > 60 01/21/19 06:10 Est GFR (Non-Af Amer) 58 01/21/19 06:10 Random Glucose 107 mg/dL (65-105) H 01/21/19 06:10 Calcium 9.9 mg/dl (8.6-10.4) 01/21/19 06:10 Phosphorus 4.4 mg/dL (2.5-4.5) 01/21/19 06:10 Magnesium 2.0 mg/dL (1.6-2.3) 01/21/19 06:10 Total Bilirubin 0.8 mg/dL (0.2-1.3) 01/21/19 06:10 AST 59 U/L (14-36) H D 01/21/19 06:10 ALT 24 U/L (9-52) 01/21/19 06:10 Alkaline Phosphatase 75 U/L (38-126) 01/21/19 06:10 Total Creatine Kinase 352 U/L (30-135) H 01/21/19 06:10 CK-MB (Mass) 25.2 ng/mL (0.0-3.38) H 01/21/19 06:10 Troponin I 2.7400 ng/mL (0.00-0.120) H* 01/21/19 06:10 Total Protein 9.0 g/dL (6.3-8.3) H 01/21/19 06:10 Albumin 4.9 g/dL (3.5-5.0) 01/21/19 06:10 Globulin 4.1 gm/dL (2.2-3.9) H 01/21/19 06:10 Albumin/Globulin Ratio 1.2 (1.0-2.1) 01/21/19 06:10 Triglycerides 124 mg/dL (0-149) 01/21/19 06:10 Cholesterol 170 mg/dL (0-199) 01/21/19 06:10 LDL Cholesterol Direct 113 mg/dL (0-129) 01/21/19 06:10 HDL Cholesterol 43 mg/dL (30-70) 01/21/19 06:10 TSH 3rd Generation 0.60 mIU/L (0.46-4.68) 01/21/19 06:10 Urine Color Yellow (YELLOW) 01/21/19 17:05 Urine Clarity Clear (Clear) 01/21/19 17:05 Urine pH 6.0 (5.0-8.0) 01/21/19 17:05 Ur Specific [place] 1.011 (1.003-1.030) 01/21/19 17:05 Urine Protein Negative mg/dL (NEGATIVE) 01/21/19 17:05 Urine Glucose (UA) Normal mg/dL (Normal) 01/21/19 17:05 Urine Ketones Negative mg/dL (NEGATIVE) 01/21/19 17:05 Urine Blood Negative (NEGATIVE) 01/21/19 17:05 Urine Nitrate Negative (NEGATIVE) 01/21/19 17:05 Urine Bilirubin Negative (NEGATIVE) 01/21/19 17:05 Urine Urobilinogen Normal mg/dL (0.2-1.0) 01/21/19 17:05 Ur Leukocyte Esterase Neg Singh/uL (Negative) 01/21/19 17:05 Urine WBC (Auto) 1 /hpf (0-5) 01/21/19 17:05 Urine RBC (Auto) < 1 /hpf (0-3) 01/21/19 17:05 Ur Squamous Epith Cells 4 /hpf (0-5) 01/21/19 17:05 Ur Transition Epith Cell < 1 /hpf (0-3) 01/21/19 17:05 Urine Bacteria Rare (<OCC) 01/21/19 17:05 Urine Opiates Screen Negative (NEGATIVE) 01/21/19 17:05 Urine Methadone Screen Negative (NEGATIVE) 01/21/19 17:05 Ur Barbiturates Screen Negative (NEGATIVE) 01/21/19 17:05 Ur Phencyclidine Scrn Negative (NEGATIVE) 01/21/19 17:05 Ur Amphetamines Screen Negative (NEGATIVE) 01/21/19 17:05 U Benzodiazepines Scrn Positive (NEGATIVE) 01/21/19 17:05 U Oth Cocaine Metabols Negative (NEGATIVE) 01/21/19 17:05 U Cannabinoids Screen Negative (NEGATIVE) 01/21/19 17:05 - Hospital Course Hospital Course: Upon Admission: 54 F w/ PMhx of HTN presents to hospital as code heart transfer from [facility]. Patient states she was playing bingo when she started having this sudden pressure like, 10/10 chest pain with pain radiating to left arm. Patient had associated SOB and 2 episodes of vomiting. Patient was rushed to ED where they found ST elevates in inferior leads II, III, AVF. Code heart was called and patient was transferred to [facility] Cardiac cath revealed 100 % stenosis in mid to proximal RCA requiring 1 stent. LAD had 60-70% occlusion. Post cath patient feels much better. Patient denies headaches, vision changes, chest pain, SOB, cough, abdominal pain, diarrhea, constipation. PMHD: Dr. Gold PMHx: HTN, sickle cell traite Meds: Unsure Allergies: Lisinopril (angioedema) FHx father had CAD in mid 50's at age of 62 PSHx: ovarian tubal ligation SHx: Denies tobacco use, drinks socially, denies illicit drug use Throughout Hospital Course: STEMI - Inferior Wall [place] s/p cardiac cath with RCA PCI placement - 60-70 % of LAD, which will require outpatient PCI placement - ECHO, pending Management: - Aspirin 81 mg daily, Brilinta 90 mg BID, Metopolol tartrate 25 mg PO BID, Rosuvastatin 20 mg daily Hypertension - Patient was started on HCTZ 12.5mg PO daily by her PMD - She has been normotensive s/p cath - Will continue to monitor Please review EMR for patient's hospital course. Discharge Exam - Head Exam Head Exam: NORMAL INSPECTION, NORMOCEPHALIC - Eye Exam Eye Exam: EOMI, Normal appearance, PERRL Pupil Exam: NORMAL ACCOMODATION - ENT Exam ENT Exam: Mucous Membranes Moist - Respiratory Exam Respiratory Exam: Clear to PA & Lateral, NORMAL BREATHING PATTERN. absent: Decreased Breath Sounds, Rales, Rhonchi, Wheezes, Respiratory Distress - Cardiovascular Exam Cardiovascular Exam: REGULAR RHYTHM, +S1, +S2 - GI/Abdominal Exam GI & Abdominal Exam: Normal Bowel Sounds, Soft. absent: Distended, Tenderness - Extremities Exam Extremities exam: normal inspection, pedal pulses present - Neurological Exam Neurological exam: Alert, CN II-XII Intact, Oriented x3 - Psychiatric Exam Psychiatric exam: Normal Affect, Normal Mood - Skin Skin Exam: Dry, Intact, Normal Color, Warm Discharge Plan - Discharge Medications Prescriptions: Aspirin [Ecotrin] 81 mg PO DAILY #30 tabec Famotidine [Pepcid] 20 mg PO DAILY PRN #10 tab PRN Reason: Heartburn Metoprolol Tartrate [Lopressor] 25 mg PO Q12H #60 tab Rosuvastatin Calcium [Crestor] 20 mg PO HS #30 tab Ticagrelor [Brilinta] 90 mg PO BID #60 tab - Follow Up Plan Condition: STABLE Disposition: HOME/ ROUTINE Additional Instructions: Please follow up with your primary care doctor with 1-2 weeks. Please continue taking the following medications: Aspirin 81 by mouth daily, Brilinta 90mg by mouth twice a day, lopressor 25mg by mouth twice a day, pepcid 20mg by mouth daily, and crestor 20mg by mouth at night after dinner. Please follow up with Dr. Guy (gas and oil servicer) within 1 month. You have another artery that will need a stent in the future. This will be arranged outpatient when you see Dr. Guy in his office. Please maintain a low salt diet, exercise, and lose weight. Please take care and be well. Referrals: Edenilson Guy MD [Staff Provider] -
[2019-01-22 07:40] VITALS: BP 124/79; PULSE 65; O2SAT 96
[2019-01-22] MEDS ORDERED: Influenza Vaccine 60 mcg/0.5 mL SYR (4YR UP) IM ONE (10:00)
--- NOTE | 2019-01-22 22:04 | CP.PCM.PN ---
Subjective - Date & Time of Evaluation Date of Evaluation: 01/21/19 Time of Evaluation: 18:20 - Subjective Subjective: Patient was seen and examined at bedside. Patient denied any chest pain, shortness of breath, or bleeding from the cath site. Objective - Vital Signs/Intake and Output Vital Signs (last 24 hours): Temp Pulse Resp BP Pulse Ox 98.1 F 67 13 148/85 98 01/21/19 04:00 01/21/19 07:00 01/21/19 07:00 01/21/19 07:00 01/21/19 07:00 Intake and Output: 01/21/19 01/21/19 06:59 18:59 Intake Total 520 70 Output Total 1900 Balance -1380 70 - Medications Medications: Current Medications Aspirin (Ecotrin) 81 mg PO DAILY [facility] Last Admin: 01/21/19 09:08 Dose: 81 mg Famotidine (Pepcid) 20 mg PO DAILY PRN PRN Reason: Heartburn Heparin Sodium (Porcine) (Heparin) 5,000 units SC Q12 [facility] Last Admin: 01/21/19 09:08 Dose: 5,000 units Influenza Virus Vaccine (Flucelvax Quad 7750-7700 Syr) 60 mcg IM .ONCE ONE Stop: 01/23/19 10:01 Metoprolol Tartrate (Lopressor) 25 mg PO Q12H [facility] Last Admin: 01/21/19 01:35 Dose: 25 mg Rosuvastatin Calcium (Crestor) 20 mg PO HS [facility] Ticagrelor (Brilinta) 90 mg PO BID [facility] Last Admin: 01/21/19 09:07 Dose: 90 mg - Labs Labs: 01/21/19 06:10 01/21/19 06:10 PT 12.9 SECONDS (9.7-12.2) H 01/21/19 06:10 INR 1.2 01/21/19 06:10 APTT 29 SECONDS (21-34) D 01/21/19 06:10 - Constitutional Appears: No Acute Distress - Head Exam Head Exam: NORMAL INSPECTION, NORMOCEPHALIC - Eye Exam Eye Exam: EOMI, Normal appearance, PERRL Pupil Exam: NORMAL ACCOMODATION - ENT Exam ENT Exam: Mucous Membranes Moist, Normal Exam - Respiratory Exam Respiratory Exam: Clear to Ausculation Bilateral, NORMAL BREATHING PATTERN. absent: Decreased Breath Sounds, Rhonchi, Wheezes - Cardiovascular Exam Cardiovascular Exam: REGULAR RHYTHM, +S1, +S2 - GI/Abdominal Exam GI & Abdominal Exam: Soft, Normal Bowel Sounds. absent: Distended, Tenderness - Extremities Exam Extremities Exam: Normal Inspection. absent: Pedal Edema, Tenderness - Neurological Exam Neurological Exam: Alert, Awake, Oriented x3 - Psychiatric Exam Psychiatric exam: Normal Affect, Normal Mood - Skin Skin Exam: Dry, Intact, Normal Color, Warm - Additional Findings Additional findings: Catherization site - clean/ dry / intact Assessment and Plan - Assessment and Plan (Free Text) Plan: STEMI - Inferior Wall MD s/p cardiac cath with RCA PCI placement - 60-70 % of LAD, which will require outpatient PCI placement - ECHO, pending Management: - Aspirin 81 mg daily, Brilinta 90 mg BID, Metopolol tartrate 25 mg PO BID, Rosuvastatin 20 mg daily Hypertension - Patient was started on HCTZ 12.5mg PO daily by her PMD - She has been normotensive s/p cath - Will continue to monitor Prophylactic Measures - GI PPX: Pepcid PO daily - DVT PPX: Hep SC Q12, SCDs Objective - Vital Signs/Intake and Output Vital Signs (last 24 hours): Temp Pulse Resp BP Pulse Ox 97.9 F 65 20 124/79 96 01/22/19 07:10 01/22/19 07:10 01/22/19 07:10 01/22/19 07:10 01/22/19 07:10 - Labs Labs: 01/21/19 06:10 01/21/19 06:10 PT 12.9 SECONDS (9.7-12.2) H 01/21/19 06:10 INR 1.2 01/21/19 06:10 APTT 29 SECONDS (21-34) D 01/21/19 06:10
--- NOTE | 2019-01-22 22:05 | CP.PCM.PN ---
Subjective - Date & Time of Evaluation Date of Evaluation: 01/21/19 Time of Evaluation: 09:20 - Subjective Subjective: Patient was seen and examined at bedside. Patient denied any chest pain, shortness of breath, or bleeding from the cath site. Objective - Vital Signs/Intake and Output Vital Signs (last 24 hours): Temp Pulse Resp BP Pulse Ox 98.1 F 67 13 148/85 98 01/21/19 04:00 01/21/19 07:00 01/21/19 07:00 01/21/19 07:00 01/21/19 07:00 Intake and Output: 01/21/19 01/21/19 06:59 18:59 Intake Total 520 70 Output Total 1900 Balance -1380 70 - Medications Medications: Current Medications Aspirin (Ecotrin) 81 mg PO DAILY [facility] Last Admin: 01/21/19 09:08 Dose: 81 mg Famotidine (Pepcid) 20 mg PO DAILY PRN PRN Reason: Heartburn Heparin Sodium (Porcine) (Heparin) 5,000 units SC Q12 [facility] Last Admin: 01/21/19 09:08 Dose: 5,000 units Influenza Virus Vaccine (Flucelvax Quad 3435-1210 Syr) 60 mcg IM .ONCE ONE Stop: 01/23/19 10:01 Metoprolol Tartrate (Lopressor) 25 mg PO Q12H [facility] Last Admin: 01/21/19 01:35 Dose: 25 mg Rosuvastatin Calcium (Crestor) 20 mg PO HS [facility] Ticagrelor (Brilinta) 90 mg PO BID [facility] Last Admin: 01/21/19 09:07 Dose: 90 mg - Labs Labs: 01/21/19 06:10 01/21/19 06:10 PT 12.9 SECONDS (9.7-12.2) H 01/21/19 06:10 INR 1.2 01/21/19 06:10 APTT 29 SECONDS (21-34) D 01/21/19 06:10 - Constitutional Appears: No Acute Distress - Head Exam Head Exam: NORMAL INSPECTION, NORMOCEPHALIC - Eye Exam Eye Exam: EOMI, Normal appearance, PERRL Pupil Exam: NORMAL ACCOMODATION - ENT Exam ENT Exam: Mucous Membranes Moist, Normal Exam - Respiratory Exam Respiratory Exam: Clear to Ausculation Bilateral, NORMAL BREATHING PATTERN. absent: Decreased Breath Sounds, Rhonchi, Wheezes - Cardiovascular Exam Cardiovascular Exam: REGULAR RHYTHM, +S1, +S2 - GI/Abdominal Exam GI & Abdominal Exam: Soft, Normal Bowel Sounds. absent: Distended, Tenderness - Extremities Exam Extremities Exam: Normal Inspection. absent: Pedal Edema, Tenderness - Neurological Exam Neurological Exam: Alert, Awake, Oriented x3 - Psychiatric Exam Psychiatric exam: Normal Affect, Normal Mood - Skin Skin Exam: Dry, Intact, Normal Color, Warm - Additional Findings Additional findings: Catherization site - clean/ dry / intact Assessment and Plan - Assessment and Plan (Free Text) Plan: STEMI - Inferior Wall AL s/p cardiac cath with RCA PCI placement - 60-70 % of LAD, which will require outpatient PCI placement - ECHO, pending Management: - Aspirin 81 mg daily, Brilinta 90 mg BID, Metopolol tartrate 25 mg PO BID, Rosuvastatin 20 mg daily Hypertension - Patient was started on HCTZ 12.5mg PO daily by her PMD - She has been normotensive s/p cath - Will continue to monitor Prophylactic Measures - GI PPX: Pepcid PO daily - DVT PPX: Hep SC Q12, SCDs Objective - Vital Signs/Intake and Output Vital Signs (last 24 hours): Temp Pulse Resp BP Pulse Ox 97.9 F 65 20 124/79 96 01/22/19 07:10 01/22/19 07:10 01/22/19 07:10 01/22/19 07:10 01/22/19 07:10 - Labs Labs: 01/21/19 06:10 01/21/19 06:10 PT 12.9 SECONDS (9.7-12.2) H 01/21/19 06:10 INR 1.2 01/21/19 06:10 APTT 29 SECONDS (21-34) D 01/21/19 06:10
[2019-01-23] MEDS ORDERED: Influenza Vaccine 60 mcg/0.5 mL SYR (4YR UP) IM ONE (10:00)
--- NOTE | 2019-01-31 02:54 | CARDCATH ---
PROCEDURE DATE: 01/20/2019 PROCEDURES: 1. Left heart catheterization. 2. Coronary angiogram. 3. Right coronary artery drug-eluting stent placement. CLINICAL INDICATIONS: 1. Acute inferior wall ST-elevation myocardial infarction. 2. Chest pain. 3. Hypertension. 4. Hyperlipidemia. 5. Chronic kidney disease. 6. Bradycardia. PERFORMING PHYSICIAN: Edenilson Guy MD REFERRING PHYSICIAN: Rose Long DO BRIEF CLINICAL HISTORY: Sofiya Torres is a 53-year-old female, presented to the Emergency Room of [facility] with acute inferior wall ST-elevation myocardial infarction. Code heart was activated. The patient was brought to [facility] for emergency cardiac catheterization and coronary intervention. DESCRIPTION OF PROCEDURE: After informed consent, the patient was prepped and draped in the usual sterile fashion. Lidocaine 2% was given in the right groin for local anesthesia. Using micropuncture technique, a 6-Romanian sheath was introduced into the right common femoral artery. The patient was preloaded with aspirin, Brilinta, and IV heparin. ACT was maintained about 250 throughout the procedure. Using JL4 6-Romanian diagnostic catheter, left coronary angiogram was performed. JR4 6-Romanian diagnostic catheter inserted into left ventricle across the aortic valve. LVEDP measured. Contrast was injected and left ventricular angiogram was done. Using the 6-Romanian JR4 guide catheter, right coronary angiogram was performed. FINDINGS OF THE LEFT HEART CATHETERIZATION: 1. Left main coronary artery is patent. 2. LAD has proximal 50% smooth lesion. Mid LAD has 40% stenosis. Diagonal has 60% to 70% stenosis. 3. Left circumflex and obtuse marginal branches are patent. 4. Right coronary artery is dominant. Right coronary artery has [id number] region 90% to 95% stenosis. 5. LV ejection fraction is approximately 60%. No wall motion abnormalities noted. CORONARY INTERVENTION: The patient presents here with acute inferior wall ST-elevation MS. The culprit artery was right coronary artery. The right coronary artery was engaged using JR4 6-Romanian guide catheter. Run through coronary wire threaded into right coronary artery. The lesion was predilated using 2.25 x 20 balloon, then later stented with 2.75 x 38 Resolute Nura drug-eluting stent. Excellent final angiographic results with brisk IVONNE-3 noted. IMPRESSION: 1. Acute inferior wall ST-elevation myocardial infarction. 2. Right coronary artery intervention with drug-eluting stent placement. PLAN: The patient will be transferred to intensive care unit for further management. Recommend dual antiplatelet therapy for one year. Edenilson Guy MD
== END 2019-01-22 12:24 | disposition home or self-care (01) | DRG 853 ==
LOC: C.CATHLAB 22:44 → C.9I 23:29 → C.5S 01-21 16:26
PROVIDERS: ADMIT Internal Medicine; ATTEND Internal Medicine
PROC: 027034Z Dilation of Coronary Artery, One Artery with Drug-eluting Intraluminal Device, Percutaneous Approach (ICD-10-PCS; principal; 2019-01-20)
PROC: 4A023N7 Measurement of Cardiac Sampling and Pressure, Left Heart, Percutaneous Approach (ICD-10-PCS; 2019-01-20)
PROC: B2111ZZ Fluoroscopy of Multiple Coronary Arteries using Low Osmolar Contrast (ICD-10-PCS; 2019-01-20)
DX: I21.19 ST elevation (STEMI) myocardial infarction involving other coronary artery of inferior wall (principal); I10 Essential (primary) hypertension; D57.3 Sickle-cell trait; Z88.8 Allergy status to other drugs, medicaments and biological substances; Z82.49 Family history of ischemic heart disease and other diseases of the circulatory system; Z86.73 Personal history of transient ischemic attack (TIA), and cerebral infarction without residual deficits

== ENCOUNTER 2019-04-07 12:30 | Observation (INO) | payer OTHER ==
[2019-04-07 12:30] VITALS: BMI 26.3
[2019-04-07] MEDS ORDERED: Aspirin 325 mg EC Tablets PO STA (13:36)
[2019-04-07] MEDS ORDERED: Aspirin 325 mg EC Tablets PO ONE (13:51)
[2019-04-07 14:19] LABS: BASO % 0.9 % (0.0-2.0); EOS # 0.1 K/uL (0.0-0.7); EOS % 2.6 % (0.0-4.0); HEMOGLOBIN 13.2 g/dL (11.0-16.0); LYMPH # 1.1 K/uL (1.0-4.3); LYMPH % 29.7 % (20.0-40.0); MEAN CELL VOLUME 85.6 fL (81.0-99.0); MEAN CORPUSCULAR HEMOGLOBIN 29.8 pg (27.0-31.0); MEAN CORPUSCULAR HGB CONC 34.8 g/dL (33.0-37.0); MEAN PLATELET VOLUME 8.6 fL (7.2-11.7); MONO # 0.3 K/uL (0.0-0.8); MONO % 9.4 % (0.0-10.0); NEUT # 2.1 K/uL (1.8-7.0); NEUT % 57.4 % (50.0-75.0); NRBC % 0.2 % (0.0-2.0); RBC 4.43 Mil/uL (3.80-5.20); RED CELL DISTRIBUTION WIDTH 13.8 % (11.5-14.5)
[2019-04-07 14:23] LABS: WHITE BLOOD COUNT 3.6 K/uL (4.8-10.8)
[2019-04-07 14:31] LABS: INR 1.1; PARTIAL THROMBOPLASTIN TIME 30.5 SECONDS (21-34); PROTHROMBIN TIME 11.5 SECONDS (9.7-12.2)
[2019-04-07 14:44] LABS: ALBUMIN 4.6 g/dL (3.5-5.0); ALT/SGPT 18 U/L (9-52); AST/SGOT 27 U/L (14-36); BLOOD UREA NITROGEN 18 mg/dL (7-17); CALCIUM 9.6 mg/dl (8.6-10.4); GFR NON-AFRICAN AMERICAN 36
[2019-04-07 14:50] LABS: B-TYPE NATRIURETIC PEPTIDE 60.1 pg/mL (0-900); CK-MB 0.73 ng/mL (0.0-3.38)
--- NOTE | 2019-04-07 15:15 | C.PDOC ---
History Of Present Illness 54 y/o female presents to the ER for evaluation of chest pain which has been present for the past 1 week. Patient states that the pain is digitally and positionally reproducible in the parasternal areas. Patient states that she has dyspnea on exertion when she walks less than 1 block.She notes that referred her to the ER. Denies having fever,chills, nausea,vomiting, and leg swelling. Time Seen by Provider: 04/07/19 13:30 Chief Complaint (Nursing): Chest Pain History Per: Patient History/Exam Limitations: no limitations Onset/Duration Of Symptoms: Days Current Symptoms Are (Timing): Still Present Severity: Moderate Past Medical History Reviewed: Historical Data, Nursing Documentation, Vital Signs Vital Signs: Last Vital Signs Temp 98.2 F 04/07/19 12:42 Pulse 61 04/07/19 15:05 Resp 15 04/07/19 15:05 BP 154/85 H 04/07/19 15:05 Pulse Ox 99 04/07/19 15:05 Primary Care Provider: Gelacio Lara - Medical History PMH: HTN Denies: Chronic Kidney Disease Surgical History: - [facility] Procedures DILATION OF 1 COR ART WITH DRUG-ELUT INTRA, PERC APPROACH (01/20/19) FLUOROSCOPY OF MULT COR ART USING L OSM CONTRAST (01/20/19) MEASURE OF CARDIAC SAMPL & PRESSURE, L HEART, PERC APPROACH (01/20/19) PRESSURE DRESSING APPLIC (09/14/13) Family History: States: No Known Family Hx - Social History Hx Alcohol Use: No Hx Substance Use: No - Immunization History Hx Influenza Vaccination: No Review Of Systems Except As Marked, All Systems Reviewed And Found Negative. Constitutional: Negative for: Fever, Chills Cardiovascular: Positive for: Chest Pain Respiratory: Positive for: Other (dyspnea on exertion) Gastrointestinal: Negative for: Nausea, Vomiting, Abdominal Pain Physical Exam - Physical Exam Appears: No Acute Distress, Other (black female) Skin: Normal Color, Warm, Dry Head: Atraumatic, Normacephalic Eye(s): bilateral: Normal Inspection Nose: Normal Oral Mucosa: Moist Neck: Supple Chest: Symmetrical, Tenderness (tenderness to bilateral parasternal areas), Other (no rash) Cardiovascular: Rhythm Regular Respiratory: Normal Breath Sounds, No Rales, No Rhonchi, No Wheezing Gastrointestinal/Abdominal: Normal Exam, Soft, No Tenderness, No Guarding, No Rebound Neurological/Psych: Oriented x3, Normal Speech ED Course And Treatment - Laboratory Results Result Diagrams: 04/07/19 14:03 04/07/19 14:03 Lab Results: PT 11.5 SECONDS (9.7-12.2) 04/07/19 14:03 INR 1.1 04/07/19 14:03 APTT 30.5 SECONDS (21-34) 04/07/19 14:03 Troponin I < 0.0120 ng/mL (0.00-0.120) 04/07/19 14:03 NT-Pro-B Natriuret Pep 60.1 pg/mL (0-900) 04/07/19 14:03 Total Bilirubin 0.5 mg/dL (0.2-1.3) 04/07/19 14:03 AST 27 U/L (14-36) 04/07/19 14:03 ALT 18 U/L (9-52) 04/07/19 14:03 Alkaline Phosphatase 92 U/L (38-126) 04/07/19 14:03 Total Protein 9.3 g/dL (6.3-8.3) H 04/07/19 14:03 Albumin 4.6 g/dL (3.5-5.0) 04/07/19 14:03 Globulin 4.6 gm/dL (2.2-3.9) H 04/07/19 14:03 Albumin/Globulin Ratio 1.0 (1.0-2.1) 04/07/19 14:03 Lab Interpretation: Normal (trop neg.) ECG: Interpreted By Me, Viewed By Me ECG Rhythm: Sinus Rhythm Rate From EC O2 Sat by Pulse Oximetry: 99 (RA) Pulse Ox Interpretation: Normal - Radiology CXR: Interpreted by Me CXR Interpretation: Yes: No Acute Disease Reevaluation Time: 15:29 Reassessment Condition: Improved - Physician Consult Information Outcome Of Conversation: 1315: d/w Dr. Guy- will Consult. 1530: d/w Dr. 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 --Aspirin PO --Toradol IV costochondritic CP Toradol Asa CP/SMALLS + significant atherosclerosis on prior card cath IWMI 01/25 with 90% RCA received drug eluding stent normal EKG now. ASA, lovenox given [facility]. Disposition Doctor Will See Patient In The: Hospital Counseled Patient/Family Regarding: Studies Performed, Diagnosis - Disposition Disposition: HOSPITALIZED Disposition Time: 15:35 Condition: GOOD Forms: [facility] (Malawian) - Clinical Impression Clinical Impression: Chest discomfort, Chest wall discomfort - Scribe Statement The provider has reviewed the documentation as recorded by the Siri Lopez Provider Attestation: All medical record entries made by the Siri were at my direction and personally dictated by me. I have reviewed the chart and agree that the record accurately reflects my personal performance of the history, physical exam, medical decision making, and the department course for this patient. I have also personally directed, reviewed, and agree with the discharge instructions and disposition.
[2019-04-07] MEDS ORDERED: Enoxaparin 40 mg Syringe SC STA (15:37)
[2019-04-07 15:46] LABS: HCG,QUALITATIVE URINE NEGATIVE (NEGATIVE)
[2019-04-07] MEDS ORDERED: Enoxaparin 80 mg Syringe ONE (15:47)
[2019-04-07 15:52] LABS: SQUAMOUS EPITHIAL 6 /hpf (0-5); URINE BILIRUBIN NEGATIVE (NEGATIVE); URINE BLOOD NEGATIVE (NEGATIVE); URINE CLARITY Clear (Clear); URINE COLOR Straw (YELLOW); URINE GLUCOSE (UA) NORMAL (Normal); URINE HYALINE CAST 0-2 /lpf (0-2); URINE LEUKOCYTE ESTERASE NEG Leu/uL (Negative); URINE PROTEIN NEGATIVE (NEGATIVE); URINE UROBILINOGEN NORMAL mg/dL (0.2-1.0)
[2019-04-07 16:04] LABS: BARBITURATES, UR NEGATIVE (NEGATIVE); BENZODIAZEPINES, UR NEGATIVE (NEGATIVE); OPIATES, UR NEGATIVE (NEGATIVE); PHENCYCLIDINE, UR NEGATIVE (NEGATIVE)
[2019-04-07] MEDS ORDERED: Pneumococcal 23-Valent Vaccine IM ONE (20:34)
[2019-04-07] MEDS: Potassium Chloride 20 mEq ER Tab PO SCH (22:01)
--- NOTE | 2019-04-07 22:07 | CP.PCM.CON ---
History of Present Illness - History of Present Illness History of Present Illness: 54 y/o female presents to the ER for evaluation of chest pain which has been present for the past 1 week. Patient states that the pain is digitally and positionally reproducible in the parasternal areas. Patient states that she has dyspnea on exertion when she walks less than 1 block. Denies having fever,chills, nausea,vomiting, and leg swelling. Chief Complaint (Nursing): Chest Pain History Per: Patient History/Exam Limitations: no limitations Onset/Duration Of Symptoms: Days Current Symptoms Are (Timing): Still Present Severity: Moderate Past Medical History Reviewed: Historical Data, Nursing Documentation, Vital Signs Vital Signs: Last Vital Signs Temp 98.2 F 04/07/19 12:42 Pulse 61 04/07/19 15:05 Resp 15 04/07/19 15:05 BP 154/85 H 04/07/19 15:05 Pulse Ox 99 04/07/19 15:05 Primary Care Provider: Gelacio Lara - Medical History PMH: HTN Denies: Chronic Kidney Disease Surgical History: - [facility] Procedures DILATION OF 1 COR ART WITH DRUG-ELUT INTRA, PERC APPROACH (01/20/19) FLUOROSCOPY OF MULT COR ART USING L OSM CONTRAST (01/20/19) MEASURE OF CARDIAC SAMPL & PRESSURE, L HEART, PERC APPROACH (01/20/19) PRESSURE DRESSING APPLIC (09/14/13) Family History: States: No Known Family Hx - Social History Hx Alcohol Use: No Hx Substance Use: No - Immunization History Hx Influenza Vaccination: No Review Of Systems Except As Marked, All Systems Reviewed And Found Negative. Constitutional: Negative for: Fever, Chills Cardiovascular: Positive for: Chest Pain Respiratory: Positive for: Other (dyspnea on exertion) Gastrointestinal: Negative for: Nausea, Vomiting, Abdominal Pain Physical Exam - Physical Exam Appears: No Acute Distress, Other (black female) Skin: Normal Color, Warm, Dry Head: Atraumatic, Normacephalic Eye(s): bilateral: Normal Inspection Nose: Normal Oral Mucosa: Moist Neck: Supple Chest: Symmetrical, Tenderness (tenderness to bilateral parasternal areas), Other (no rash) Cardiovascular: Rhythm Regular Respiratory: Normal Breath Sounds, No Rales, No Rhonchi, No Wheezing Gastrointestinal/Abdominal: Normal Exam, Soft, No Tenderness, No Guarding, No Rebound Neurological/Psych: Oriented x3, Normal Speech Past Patient History - Past Medical History & Family History Past Medical History?: Yes - Past Social History Smoking Status: Never Smoked - CARDIAC Hx Hypertension: Yes - PULMONARY Hx Respiratory Disorders: No - NEUROLOGICAL Hx Neurological Disorder: No - HEENT Hx HEENT Problems: No - RENAL Hx Chronic Kidney Disease: No - ENDOCRINE/METABOLIC Hx Endocrine Disorders: No - HEMATOLOGICAL/ONCOLOGICAL Hx Blood Disorders: Yes - INTEGUMENTARY Hx Dermatological Problems: No - MUSCULOSKELETAL/RHEUMATOLOGICAL Hx Musculoskeletal Disorders: No - GASTROINTESTINAL Hx Gastrointestinal Disorders: No - GENITOURINARY/GYNECOLOGICAL Hx Genitourinary Disorders: No - PSYCHIATRIC Hx Substance Use: No - SURGICAL HISTORY Hx Surgeries: Yes Hx Cardiac Catheterization: Yes (1) Hx Section: Yes Hx Tubal Ligation: Yes Other/Comment: stemi 01/25 - ANESTHESIA Hx Malignant Hyperthermia: No Meds Allergies/Adverse Reactions: Allergies Allergy/AdvReac Type Severity Reaction Status Date / Time lisinopril Allergy ANGIOEDEMA Verified 01/20/19 22:10 - Medications Medications: Current Medications Amlodipine Besylate (Norvasc) 10 mg PO DAILY [facility] Aspirin (Ecotrin) 81 mg PO DAILY [facility] Metoprolol Tartrate (Lopressor) 25 mg PO Q12H [facility] Last Admin: 04/07/19 22:04 Dose: 25 mg Potassium Chloride (K-Dur 20 Meq Er Tab) 20 meq PO DAILY [facility] Last Admin: 04/07/19 22:01 Dose: 20 meq Rosuvastatin Calcium (Crestor) 20 mg PO HS [facility] Last Admin: 04/07/19 22:02 Dose: 20 mg Ticagrelor (Brilinta) 90 mg PO BID [facility] Results - Vital Signs Recent Vital Signs: Last Vital Signs Temp 97.9 F 04/07/19 17:28 Pulse 65 04/07/19 17:28 Resp 20 04/07/19 17:28 BP 144/79 04/07/19 22:04 Pulse Ox 98 04/07/19 17:28 - Labs Result Diagrams: 04/07/19 14:03 04/07/19 14:03 Labs: Laboratory Results - last 24 hr 04/07/19 04/07/19 04/07/19 14:03 14:03 14:03 WBC 3.6 L D RBC 4.43 Hgb 13.2 Hct 37.9 MCV 85.6 MCH 29.8 MCHC 34.8 RDW 13.8 Plt Count 267 MPV 8.6 Neut % (Auto) 57.4 Lymph % (Auto) 29.7 [place] % (Auto) 9.4 Eos % (Auto) 2.6 Baso % (Auto) 0.9 Neut # (Auto) 2.1 Lymph # (Auto) 1.1 [place] # (Auto) 0.3 Eos # (Auto) 0.1 Baso # (Auto) 0.0 PT 11.5 INR 1.1 APTT 30.5 Sodium 139 Potassium 3.5 L Chloride 100 Carbon Dioxide 28 Anion Gap 14 BUN 18 H Creatinine 1.5 H Est GFR ( Amer) 44 Est GFR (Non-Af Amer) 36 Random Glucose 91 Calcium 9.6 Total Bilirubin 0.5 AST 27 ALT 18 Alkaline Phosphatase 92 Total Creatine Kinase 151 H CK-MB (Mass) 0.73 Troponin I < 0.0120 NT-Pro-B Natriuret Pep 60.1 Total Protein 9.3 H Albumin 4.6 Globulin 4.6 H Albumin/Globulin Ratio 1.0 Urine Color Urine Clarity Urine pH Ur Specific [place] Urine Protein Urine Glucose (UA) Urine Ketones Urine Blood Urine Nitrate Urine Bilirubin Urine Urobilinogen Ur Leukocyte Esterase Urine WBC (Auto) Urine RBC (Auto) Ur Squamous Epith Cells Hyaline Casts Urine HCG, Qual Urine Opiates Screen Urine Methadone Screen Ur Barbiturates Screen Ur Phencyclidine Scrn Ur Amphetamines Screen U Benzodiazepines Scrn U Oth Cocaine Metabols U Cannabinoids Screen 04/07/19 04/07/19 15:30 15:30 WBC RBC Hgb Hct MCV MCH MCHC RDW Plt Count MPV Neut % (Auto) Lymph % (Auto) [place] % (Auto) Eos % (Auto) Baso % (Auto) Neut # (Auto) Lymph # (Auto) [place] # (Auto) Eos # (Auto) Baso # (Auto) PT INR APTT Sodium Potassium Chloride Carbon Dioxide Anion Gap BUN Creatinine Est GFR ( Amer) Est GFR (Non-Af Amer) Random Glucose Calcium Total Bilirubin AST ALT Alkaline Phosphatase Total Creatine Kinase CK-MB (Mass) Troponin I NT-Pro-B Natriuret Pep Total Protein Albumin Globulin Albumin/Globulin Ratio Urine Color Straw Urine Clarity Clear Urine pH 6.0 Ur Specific [place] 1.010 Urine Protein Negative Urine Glucose (UA) Normal Urine Ketones Negative Urine Blood Negative Urine Nitrate Negative Urine Bilirubin Negative Urine Urobilinogen Normal Ur Leukocyte Esterase Neg Urine WBC (Auto) < 1 Urine RBC (Auto) < 1 Ur Squamous Epith Cells 6 H Hyaline Casts 0-2 Urine HCG, Qual Negative Urine Opiates Screen Negative Urine Methadone Screen Negative Ur Barbiturates Screen Negative Ur Phencyclidine Scrn Negative Ur Amphetamines Screen Negative U Benzodiazepines Scrn Negative U Oth Cocaine Metabols Negative U Cannabinoids Screen Negative Assessment & Plan - Assessment and Plan (Free Text) Assessment: 54 F with hx of CO s/p RCA stent presents with chest pain Hx of HTN Hyperlipidema For Cath tomorrow
[2019-04-07 23:42] LABS: CK-MB 0.68 ng/mL (0.0-3.38)
[2019-04-08 07:06] LABS: CK-MB 0.46 ng/mL (0.0-3.38)
[2019-04-08] MEDS: Potassium Chloride 20 mEq ER Tab PO SCH (09:10)
[2019-04-08] MEDS ORDERED: Verapamil 2 ML ONE (10:37)
[2019-04-08] MEDS ORDERED: Nitroglycerin 50mg in D5W 50 MG/250 ML BOTTLE IV ONE (10:37)
[2019-04-08] MEDS ORDERED: Midazolam 2 MG/2 ML VIAL ONE (10:38)
[2019-04-08] MEDS ORDERED: Iodixanol 320 MG/ML 200 ML BOTTLE IV ONE (11:03)
[2019-04-08] MEDS ORDERED: Lidocaine 2% MPF (5 ml) Inj ONE (11:05)
--- NOTE | 2019-04-08 14:09 | CARD ---
APPROVED REPORT Date of service: 04/07/2019 EKG Measurement Heart [id number] <Conclusion> Normal sinus rhythm Minimal voltage criteria for LVH, may be normal variant Cannot rule out Anterior infarct, age undetermined Abnormal ECG
--- NOTE | 2019-04-08 14:20 | CP.PCM.PN ---
Subjective - Date & Time of Evaluation Date of Evaluation: 04/08/19 Time of Evaluation: 14:11 - Subjective Subjective: Medicine Note for Dr. Short's Service Patient was seen and examined at bedside. Patient reports her chest pain and shortness of breath has subsided. Patient is for cardiac cath with Dr. Guy Objective - Vital Signs/Intake and Output Vital Signs (last 24 hours): Temp Pulse Resp BP Pulse Ox 97.3 F L 54 L 18 141/83 95 04/08/19 07:25 04/08/19 07:31 04/08/19 07:25 04/08/19 09:07 04/08/19 07:25 - Medications Medications: Current Medications Amlodipine Besylate (Norvasc) 10 mg PO DAILY [facility] Last Admin: 04/08/19 09:10 Dose: 10 mg Aspirin (Ecotrin) 81 mg PO DAILY [facility] Last Admin: 04/08/19 09:06 Dose: 81 mg Clopidogrel Bisulfate (Plavix) 75 mg PO DAILY [facility] Sodium Chloride (Sodium Chloride 0.45%) 500 mls @ 70 mls/hr IV .Q7H9M [facility] Stop: 04/09/19 01:00 Metoprolol Tartrate (Lopressor) 25 mg PO Q12H [facility] Last Admin: 04/08/19 09:07 Dose: 25 mg Potassium Chloride (K-Dur 20 Meq Er Tab) 20 meq PO DAILY [facility] Last Admin: 04/08/19 09:10 Dose: 20 meq Rosuvastatin Calcium (Crestor) 20 mg PO HS [facility] Last Admin: 04/07/19 22:02 Dose: 20 mg - Labs Labs: 04/07/19 14:03 04/07/19 14:03 PT 11.5 SECONDS (9.7-12.2) 04/07/19 14:03 INR 1.1 04/07/19 14:03 APTT 30.5 SECONDS (21-34) 04/07/19 14:03 - Constitutional Appears: No Acute Distress - Head Exam Head Exam: NORMAL INSPECTION, NORMOCEPHALIC - Eye Exam Eye Exam: EOMI, Normal appearance, PERRL Pupil Exam: NORMAL ACCOMODATION - ENT Exam ENT Exam: Mucous Membranes Moist - Respiratory Exam Respiratory Exam: Clear to Ausculation Bilateral, NORMAL BREATHING PATTERN. absent: Decreased Breath Sounds, Wheezes - Cardiovascular Exam Cardiovascular Exam: REGULAR RHYTHM, RRR - GI/Abdominal Exam GI & Abdominal Exam: Soft, Normal Bowel Sounds. absent: Distended, Tenderness - Extremities Exam Extremities Exam: Normal Inspection. absent: Pedal Edema, Tenderness - Neurological Exam Neurological Exam: Alert, Awake, Oriented x3 - Psychiatric Exam Psychiatric exam: Normal Affect, Normal Mood - Skin Skin Exam: Dry, Intact, Normal Color, Warm Assessment and Plan - Assessment and Plan (Free Text) Plan: Chest Pain - acute - ROSMERY x 3 negative - s/p cardiac cath 04/08/19 - 60-70% LAD - Continue with medical management Prior Admission Hx STEMI 01/21/19 - [facility] [place] s/p cardiac cath with RCA PCI placement - 60-70 % of LAD Management: - Aspirin 81 mg daily, Plavix 75mg PO daily, Metopolol tartrate 25 mg PO BID, Rosuvastatin 20 mg daily Hypertension - chronic - Resumed Norvasc 10mg daily Prophylactic Measures - GI PPX: Not indicated - DVT PPX: SCDs Disposition: Patient can be discharged April 09, 2019 after being cleared by cardio. SHAWN Short, Miladis Soares DO, PGY2
--- NOTE | 2019-04-09 03:39 | CP.PCM.PN ---
Subjective - Date & Time of Evaluation Date of Evaluation: 04/08/19 Time of Evaluation: 18:15 - Subjective Subjective: Patient s/p cardiac Cath Non Obstructive Coronaries (LAD proximal 50%) stenosis Prior stent in RCA patent EF 50-55% Medical management Recommend switch Brlinta to Plavix due to dyspnea and Bradycardia Objective - Vital Signs/Intake and Output Vital Signs (last 24 hours): Temp Pulse Resp BP Pulse Ox 98.1 F 62 20 126/77 95 04/08/19 23:45 04/08/19 23:45 04/08/19 23:45 04/08/19 23:45 04/08/19 23:45 - Medications Medications: Current Medications Amlodipine Besylate (Norvasc) 10 mg PO DAILY [facility] Last Admin: 04/08/19 09:10 Dose: 10 mg Aspirin (Ecotrin) 81 mg PO DAILY [facility] Last Admin: 04/08/19 09:06 Dose: 81 mg Clopidogrel Bisulfate (Plavix) 75 mg PO DAILY [facility] Metoprolol Tartrate (Lopressor) 25 mg PO Q12H [facility] Last Admin: 04/08/19 22:58 Dose: 25 mg Potassium Chloride (K-Dur 20 Meq Er Tab) 20 meq PO DAILY [facility] Last Admin: 04/08/19 09:10 Dose: 20 meq Rosuvastatin Calcium (Crestor) 20 mg PO HS [facility] Last Admin: 04/08/19 22:58 Dose: 20 mg - Labs Labs: 04/07/19 14:03 04/07/19 14:03 PT 11.5 SECONDS (9.7-12.2) 04/07/19 14:03 INR 1.1 04/07/19 14:03 APTT 30.5 SECONDS (21-34) 04/07/19 14:03
[2019-04-09 08:07] VITALS: BP 133/85; PULSE 61; RESP 18; TEMP 97.7; O2SAT 100
--- NOTE | 2019-04-09 08:10 | HP ---
HISTORY OF PRESENT ILLNESS: The patient is a 54-year-old female with chief complaint of chest pain, weakness, dizziness, coronary artery disease. PHYSICAL EXAMINATION: GENERAL: The patient is awake, alert, oriented. VITAL SIGNS: Temperature 98, pulse blood pressure 120/70. HEENT: Within normal limits. NECK: Supple. CHEST: Symmetrical. HEART: Regular. ABDOMEN: Soft. EXTREMITIES: No edema. ASSESSMENT AND PLAN: The patient suffers from unstable angina enzyme, cardiology consult. Jorge Short MD
--- NOTE | 2019-04-09 10:09 | CP.PCM.PN ---
Subjective - Date & Time of Evaluation Date of Evaluation: 04/09/19 Time of Evaluation: 10:08 - Subjective Subjective: PATIENT SEEN AND EXAMINED AT THE BEDSIDE Objective - Vital Signs/Intake and Output Vital Signs (last 24 hours): Temp Pulse Resp BP Pulse Ox 97.7 F 61 18 133/85 100 04/09/19 07:25 04/09/19 07:25 04/09/19 07:25 04/09/19 07:25 04/09/19 07:25 - Medications Medications: Current Medications Amlodipine Besylate (Norvasc) 10 mg PO DAILY [facility] Last Admin: 04/08/19 09:10 Dose: 10 mg Aspirin (Ecotrin) 81 mg PO DAILY [facility] Last Admin: 04/08/19 09:06 Dose: 81 mg Clopidogrel Bisulfate (Plavix) 75 mg PO DAILY [facility] Metoprolol Tartrate (Lopressor) 25 mg PO Q12H [facility] Last Admin: 04/08/19 22:58 Dose: 25 mg Potassium Chloride (K-Dur 20 Meq Er Tab) 20 meq PO DAILY [facility] Last Admin: 04/08/19 09:10 Dose: 20 meq Rosuvastatin Calcium (Crestor) 20 mg PO HS [facility] Last Admin: 04/08/19 22:58 Dose: 20 mg - Labs Labs: 04/07/19 14:03 04/07/19 14:03 PT 11.5 SECONDS (9.7-12.2) 04/07/19 14:03 INR 1.1 04/07/19 14:03 APTT 30.5 SECONDS (21-34) 04/07/19 14:03 Assessment and Plan - Assessment and Plan (Free Text) Assessment: FOLLOW UP WITH DR RAMSAY IN HIS OFFICE FOLLOW UP WITH DR WATSON CONTINUE HOME MEDICATION NEW PRESCRIPTION GIVEN PLAVIX 75 MG PO DAILY AMLODIPINE 10 MG PO DAILY AASPIRIN 81 MG PO DAILY LOPRESSSOR 25 MG PO Q12H CRESTOR 20 MG PO AT HS STOP [place] ACTIVITY TOLERATED CALL DR RAMSAY OR GO TO THE EMERGENCY ROOM IF SYMPTOM RETURN OR WORSENING
[2019-04-09] MEDS: Potassium Chloride 20 mEq ER Tab PO SCH (10:29)
--- NOTE | 2019-04-11 04:47 | CARDCATH ---
PROCEDURE DATE: 04/08/2019 PROCEDURES: 1. Left heart catheterization. 2. Coronary angiogram. REFERRING PHYSICIAN: Jorge Short MD PERFORMING PHYSICIAN: Edenilson Guy MD CLINICAL INDICATIONS: 1. Unstable angina. 2. Dyspnea. 3. History of coronary artery disease and stent placement. 4. Hypertension. 5. Hyperlipidemia. 6. Bradycardia. DESCRIPTION OF PROCEDURE: After informed consent, the patient was prepped and draped in the usual sterile fashion. Lidocaine 2% was given in the right wrist for local anesthesia. Using micropuncture technique, a 6-Nigerian sheath was introduced into right radial artery. However, due to extreme tortuosity of the subclavian artery, cardiac catheterization could not be completed via the radial access. The access was switched to right groin access. A 6-Nigerian sheath was introduced into the right common femoral artery. A JL4 6-Nigerian diagnostic catheter was engaged into the left main coronary artery. Contrast was injected and left coronary angiogram was done. Then, the catheter was exchanged to no-torque catheter. The catheter was engaged into right coronary artery. Contrast was injected and right coronary angiogram was done. The JL4, 6-Nigerian diagnostic catheter was inserted into left ventricle. LVEDP measured. Contrast was injected and LV angiogram was done. Then, the catheter was pulled back across the aortic valve. Gradient across the aortic valve was measured. The patient tolerated the procedure well. Postprocedure, Mynx closure device was applied in the right groin with excellent hemostasis. FINDINGS: 1. Left main coronary artery is patent. 2. LAD has proximal 50-60% nonobstructive stenosis. Mid and distal LAD and diagonal branches are patent. 3. Left circumflex and obtuse marginal branches are patent. 4. Right coronary artery is dominant. Prior stent in the right coronary artery is patent. 5. LV ejection fraction is approximately 50-55%. No gradient across the aortic valve. EDP is 20. IMPRESSION: 1. Nonobstructive coronaries as described above. Prior stent in the right coronary artery is patent. Left anterior descending has proximal 50-60% nonobstructive stenosis. 2. Normal left ventricular systolic function. PLAN: Recommend medical management. Edenilson Guy MD
== END 2019-04-09 14:06 | disposition home or self-care (01) ==
LOC: C.ER 12:30 → C.6T 15:40 → C.9E 15:53 → C.6T 16:50
PROVIDERS: ADMIT Internal Medicine Pulmonary Disease; ATTEND Internal Medicine Pulmonary Disease
DX: I25.110 Atherosclerotic heart disease of native coronary artery with unstable angina pectoris (principal); I10 Essential (primary) hypertension; Z95.5 Presence of coronary angioplasty implant and graft; E78.5 Hyperlipidemia, unspecified; I25.2 Old myocardial infarction; Z79.899 Other long term (current) drug therapy
CPT/HCPCS: 36415; 80053; 80324; 80345; 80346; 80349; 80353; 80358; 80361; 81001; 83880; 83992; 84484; 84703; 85025; 85610; 85730; 93005; 93458; 96372; 96374; 99152; 99285; C1760; C1769; C1887; C1893; C1894; G0378; J1644; J1650; J1885; J2001; J2250; J3010; Q9966